=== PATIENT | female | born 1965 | race Caucasian/White ===

== ENCOUNTER 2017-04-12 08:46 | Emergency (ER) | payer BC ==
[~2017-04-12] VITALS: Ht 152.4 cm; Wt 56.0 kg
[~2017-04-12 08:46] MED LIST: AMOXICILLIN500 MG PO; AUGMENTIN875TAB PO; FLONASE NASAL50 MCG; MUCINEX600 MG PO; PREVPAC PO
[2017-04-12 09:53] LABS: HEMATOCRIT 39.7 % (37.0-47.0); HEMOGLOBIN 13.1 g/dl (12.0-16.0); IMMATURE GRANULOCYTES 0.5 % (0.0-1.0); MEAN CELL VOLUME 85.7 fL CALC (80.0-100.0); MEAN CORPUSCULAR HGB 28.3 pG CALC (26.0-32.0); NEUT# 4.81 thou/uL (2.00-7.15); RED BLOOD COUNT 4.63 mill/uL (4.20-5.60)
[2017-04-12 10:04] LABS: ALBUMIN 4.6 g/dL (3.2-5.0); ALKALINE PHOSPHATASE 66 u/l (38-126); AMYLASE 92 u/l (30-110); ANION GAP 15 (6-22 (CALC)); BILIRUBIN, TOTAL 0.9 mg/dL (0.0-1.4); BUN 11 mg/dL (7-17); BUN/CREATININE RATIO 16 (12-20 (CALC)); CALCIUM 9.2 mg/dL (8.4-10.2); CARBON DIOXIDE 24 mmol/l (22-30); CHLORIDE 102 mmol/l (95-108); CREATININE 0.7 mg/dL (0.5-1.0); GFR > 60 ML/MIN (>=60 (CALC)); GFR FOR AFR.AMER. > 60 ML/MIN (>=60 (CALC)); GLUCOSE 103 mg/dL (65-105); LIPASE 46 u/l (23-300); POTASSIUM 3.9 mmol/l (3.5-5.1); SGOT/AST 34 u/l (14-36); SGPT/ALT 25 u/l (9-52); SODIUM 138 mmol/l (137-146)
[2017-04-12 10:16] LABS: MYOGLOBIN 21 ng/mL (0 - 62)
[2017-04-12 12:31] LABS: URINE BILIRUBIN - DIPSTICK NEGATIVE (NEGATIVE); URINE BLOOD DIPSTICK TRACE-INTACT (NEGATIVE); URINE CLARITY SLIGHT CLOUDY; URINE COLOR YELLOW; URINE GLUCOSE - DIPSTICK NEGATIVE (NEGATIVE); URINE KETONE 15 mg/dL (NEGATIVE); URINE LEUK ESTERASE NEGATIVE (NEGATIVE); URINE NITRITE - DIPSTICK NEGATIVE (Negative); URINE PROTEIN - DIPSTICK NEGATIVE (NEG-TRACE); URINE UROBILINOGEN - DIPSTICK 0.2 E.U./dL (0.2)
[2017-04-12] MEDS ORDERED: ZOFRAN ODT4 MG PO (13:58)
[2017-04-12 13:59] VITALS: BP 117/58
== END 2017-04-12 14:13 | disposition home or self-care (01) | DRG 392 ==
LOC: ED 08:46
PROVIDERS: Emergency Medicine
DX: R10.13 Epigastric pain (principal); R11.2 Nausea with vomiting, unspecified
CPT/HCPCS: Q9967

== ENCOUNTER 2019-11-27 | Emergency (ER) | payer BC ==
[~2019-11-27] MED LIST changes: +ZOFRAN ODT4 MG PO
[2019-11-27] MEDS ORDERED: SMZ-TMP DS1 TAB PO (14:18)
== END 2019-11-27 14:20 | disposition home or self-care (01) | DRG 603 ==
PROC: 0H9HXZX Drainage of Right Upper Leg Skin, External Approach, Diagnostic (ICD-10-PCS; principal; 2019-11-27)
DX: L02.415 Cutaneous abscess of right lower limb (principal); L03.115 Cellulitis of right lower limb

== ENCOUNTER 2019-11-29 | Emergency (ER) | payer BC ==
[~2019-11-29] MED LIST changes: +SMZ-TMP DS1 TAB PO
== END 2019-11-29 14:54 | disposition home or self-care (01) | DRG 951 ==
DX: Z48.01 Encounter for change or removal of surgical wound dressing (principal)

== ENCOUNTER 2019-12-02 | Emergency (ER) | payer BC | END 2019-12-02 11:56 | disposition home or self-care (01) | DRG 951 | DX: Z48.01 Encounter for change or removal of surgical wound dressing (principal) ==

== ENCOUNTER 2019-12-04 08:11 | Emergency (ER) | payer BC ==
[2019-12-04] MEDS ORDERED: BACTRIM DS1 TAB PO ×2 (08:24→08:29)
[2019-12-04 08:50] VITALS: BP 115/73
== END 2019-12-04 08:50 | disposition home or self-care (01) | DRG 951 ==
LOC: ED 08:11
DX: Z48.01 Encounter for change or removal of surgical wound dressing (principal)

== ENCOUNTER 2022-05-12 11:25 | Emergency (ER) | payer OTHER, BC ==
[~2022-05-12] VITALS: Ht 152.4 cm; Wt 55.9 kg
[~2022-05-12 11:25] MED LIST changes: +BACTRIM DS1 TAB PO
[2022-05-12 11:36] VITALS: BP 138/85
[2022-05-12 12:02] VITALS: BP 138/98
[2022-05-12 12:31] VITALS: BP 82/61
[2022-05-12 13:01] VITALS: BP 129/77
[2022-05-12 13:30] VITALS: BP 134/86
[2022-05-12] MEDS ORDERED: NAPROXEN500 MG PO (13:38)
[2022-05-12 13:45] VITALS: BP 134/86
== END 2022-05-12 13:59 | disposition home or self-care (01) | DRG 563 ==
LOC: ED 11:25
DX: S63.601A Unspecified sprain of right thumb, initial encounter (principal); W22.8XXA Striking against or struck by other objects, initial encounter; Y93.89 Activity, other specified; Y92.89 Other specified places as the place of occurrence of the external cause; Y99.0 Civilian activity done for income or pay